=== PATIENT | female | born 1960 | race Caucasian/White ===

== ENCOUNTER → 2016-11-22 | Outpatient (CLI) | payer MEDICARE, MEDICAID ==
[~2016-11-22] MED LIST: ABILIFY10 MG PO; ABILIFY5 MG PO; ANTIVERT-DPS25 MG PO; ASPIR-LOW81 MG PO; CALCIUM600 MG PO; CLARITIN10 M2 PO; DIVALPROEX SOD250 M1 PO; DIVALPROEX SOD500 M1 PO; FUROSEMIDE40 MG PO; IBUPROFEN200 MG PO; KEPPRA1000 MG PO; KLOR-CON M2020 ME1 PO; LAMOTRIGINE ER250 MG PO; LEVOTHYROXINE25 MCG PO; PHENYTOIN SODI200 MG PO; PRILOSEC DPS20 MG PO; RISPERDAL2 M1 PO; TYLENOL DPS325 MG PO; VITAMIN D2000 UNIT PO; [UNRECOGNIZED DRUG - OTHER] PO
== END | disposition home or self-care (01) ==
LOC: ONCM 12:15 → RAD.S 12:19
DX: C19 Malignant neoplasm of rectosigmoid junction (principal); K57.30 Diverticulosis of large intestine without perforation or abscess without bleeding; K80.20 Calculus of gallbladder without cholecystitis without obstruction; Z98.890 Other specified postprocedural states

== ENCOUNTER → 2017-05-13 | Outpatient (CLI) | payer MEDICARE, MEDICAID | END | disposition home or self-care (01) | LOC: RAD.S 02-25 08:30 → ONCM 03-31 10:00 → RAD.S 09:01 | DX: C19 Malignant neoplasm of rectosigmoid junction (principal); Z98.890 Other specified postprocedural states ==